=== PATIENT | male | born 1950 | race African-American/Black ===

== ENCOUNTER → 2017-05-25 | Outpatient (CLI) | payer OTHER, MEDICARE ==
[~2017-05-25] MED LIST: NS 100 ML IV 100 ML IV ONE
[2017-05-25 10:20] LABS: CREATININE 1.18 mg/dL (0.70-1.30)
--- NOTE | 2017-05-25 12:26 | CT ---
History: Right inguinal pain Study: CT abdomen and pelvis with contrast Findings: [address] imaging is performed from above the diaphragms below the ischial t uberosities following the oral ingestion of dilute contrast and during the intravenous administratio n 100 milliliters of Omnipaque 350. Coronal and sagittal reformatted images are submitted as well. L nidia bases are clear and there are no pleural effusions. There is a well-circumscribed 2 centimeter r ight hepatic cyst. Liver and spleen otherwise enhance uniformly. The pancreas, gallbladder adrenal g lands appear unremarkable. There is a 2.8 centimeter cyst laterally in the midpole region of the lef t kidney. The right kidney appears unremarkable. Imaging through the pelvis demonstrates no evidence of an inguinal or ventral hernia. Large and small bowel appear unremarkable. The appendix is not id entified with certainty. Degenerative disc disease at the L5-S1 level is noted Impression: . Right hepatic and left renal cysts. Reported By:
== END | disposition home or self-care (01) | DRG 392 ==
LOC: RAD 09:52
PROVIDERS: ATTEND Internal Medicine
DX: R10.31 Right lower quadrant pain (principal); K76.89 Other specified diseases of liver; N28.1 Cyst of kidney, acquired
CPT/HCPCS: 36415; 74177; 82565; 84520; A4222